=== PATIENT | female | born 1945 | race Caucasian/White ===

== ENCOUNTER 2020-11-07 10:16 | Day surgery (SDC) | payer OTHER ==
--- NOTE | 2020-11-06 13:00 | RAD REPORT ---
EXAM DESCRIPTION: Adolph Geller And Lawrence (2 Views)11/06/2020 12:40 pm CLINICAL HISTORY: Preop for cardiac catheterization COMPARISON: 2016 FINDINGS: The lungs appear clear of acute infiltrate. The heart is borderline enlarged. Small to mo derate hiatal hernia is suspected. Calcified lung granulomas and calcified hilar lymph nodes seen IMPRESSION: No acute abnormalities displayed
[2020-11-06 13:08] LABS: Absolute Lymphocytes (CBC) 1.8 K/uL (0.7-4.9); Basophils % 0.5 % (0-1.3); Hematocrit 38.4 % (36.0-45.0); Lymphocytes % 23.8 % (15.3-44.8); MPV 11.1 fL (7.6-11.3); RBC Red Blood Cell Count 4.38 M/uL (3.86-4.86)
[2020-11-06 13:10] LABS: Protime INR 0.97
[2020-11-07] MEDS ORDERED: HEPA 1000U/500MLS 2,000 UNIT/1,000 ML BAG IV ONE (11:02)
[2020-11-07] MEDS ORDERED: LIDOCAINE 1% 20 ML MDV ONE (11:02)
[2020-11-07] MEDS ORDERED: NA CHLORIDE 0.9% 500 ML ONE ×2 (11:08→12:54)
[2020-11-07 11:26] LABS: Potassium 4.2 mmol/L (3.5-5.1)
[2020-11-07] MEDS ORDERED: MIDAZOLAM HCL 2 MG/2 ML INJ ONE (11:36)
[2020-11-07] MEDS ORDERED: HEPARIN 5000 UNIT/ML 1 ML VIAL ONE (11:36)
[2020-11-07] MEDS ORDERED: HEPARIN 10,000 UNIT/10 ML VIAL IV ONE (11:37)
[2020-11-07] MEDS ORDERED: FENTANYL CITR 100 MCG/2 ML ONE (11:37)
[2020-11-07] MEDS ORDERED: VERAPAMIL HCL 10 MG/4 ML VIAL IV ONE (11:37)
[2020-11-07] MEDS ORDERED: ATROPINE SULF 1 MG/10 ML SYR IV ONE (11:38)
[2020-11-07] MEDS ORDERED: NITROGLYCERIN 100 MCG/ML SYR (for cath lab use only) IV ONE (11:38)
[2020-11-07] MEDS ORDERED: NITROGLYCERIN/D5W 25 MG/250 ML BTL IV ONE (11:38)
[2020-11-07] MEDS ORDERED: HEPA 1000U/500MLS 1,000 UNIT/500 ML BAG IV ONE (13:05)
[2020-11-07 15:24] VITALS: BP 123/73; TEMP 96.3; O2SAT 98
--- NOTE | 2020-11-07 19:37 | OP ---
Date of Procedure: 11/07/2020 Surgeon: ANTHONY CARTER Procedure Performed: Selective coronary angiogram, access right radial artery 6-Malaysian closed with T R band. Indication: Unstable angina. Complications: None. Bleeding: Less than 5 mL. Description Of Procedure: After risks, benefits, and alternatives were explained, the patient agreed to the procedure and signed informed consent. The patient was brought into the cardiac catheterizat ion laboratory, prepped and draped in usual sterile fashion. We used the pediatric micropuncture kit to access right radial artery, placed a 6-Malaysian slender sheath and took a 5-Malaysian [place] catheter i nto the aortic root, engaged left main, the right coronary artery and took standard views and removed the catheter and sheath and placed TR band. Findings: 1.Left main is normal. 2.Proximal to mid LAD, patent stent. In the mid LAD, there is a 40 to 50% focal stenosis. 3.Left circumflex proximal 30%, patent mid left circumflex stent. OM1 has 40% proximally. 4.RCA proximal 30 to 40%. Rest of the vessel is normal. There is a dominant circulation. Impression: Moderate coronary artery disease as above. Recommendation: Outpatient nuclear stress test. If abnormal, we will plan for possible PCI of the L AD. SR/MODL Voice ID: [id number] Report ID: [id number]
== END 2020-11-07 16:10 | disposition home or self-care (01) ==
LOC: CCL 10:16
PROVIDERS: ATTEND Internal Medicine
DX: I25.110 Atherosclerotic heart disease of native coronary artery with unstable angina pectoris (principal); Z20.822 Contact with and (suspected) exposure to COVID-19; I11.0 Hypertensive heart disease with heart failure; I50.32 Chronic diastolic (congestive) heart failure; I34.0 Nonrheumatic mitral (valve) insufficiency; E11.9 Type 2 diabetes mellitus without complications; E78.2 Mixed hyperlipidemia; I47.1 Supraventricular tachycardia; K21.9 Gastro-esophageal reflux disease without esophagitis; J45.20 Mild intermittent asthma, uncomplicated; Z95.5 Presence of coronary angioplasty implant and graft
CPT/HCPCS: 85025; 80048; 36415; 85610; 82947 ×2; 85347; 85730; 71046; 93454; U0002; C1893; J1644 ×3; J2250; J3010; J7040 ×2